=== PATIENT | female | born 1945 | race Caucasian/White ===

== ENCOUNTER 2017-12-09 12:02 | Outpatient (CLI) | payer OTHER ==
[~2017-12-09 12:02] MED LIST: ACETAMINOPHEN-1 EAC2 PO; AMOX-CLAV 875-1 EACH PO; CATAFLAN PO; CLONAZEPAM1 MG PO; DOCUSATE SODIU100 MG PO; GABAPENTIN800 MG PO; NEURONTIN300 MG PO; ZOCOR20 MG PO; ZOFRAN4 MG PO
== END 2017-12-09 15:11 | disposition home or self-care (01) ==
LOC: RAD 12:02
DX: M51.36 Other intervertebral disc degeneration, lumbar region (principal); Z98.1 Arthrodesis status